=== PATIENT | female | born 1955 | race African-American/Black ===

== ENCOUNTER 2023-11-01 15:40 | Inpatient (IN) | payer OTHER, MEDICARE ==
[~2023-11-01] VITALS: Ht 167.6 cm; Wt 72.3 kg
[~2023-11-01 15:40] MED LIST: AMLO10TA80 MT; ASPI-1497 MT; CIPR-263 MT; IBUP-2029 PO; LIP40 MT; TAMS-11 MT
[2023-11-01 16:35] LABS: BASOPHILS % 0.5 % (0.0-2.0); HEMATOCRIT. 34.7 % (36.0-48.0); HEMOGLOBIN. 11.3 g/dL (12.0-16.0); MEAN CORPUSCULAR HEMOGLOBIN 26.9 pg (28.0-32.0); MEAN CORPUSCULAR HGB CONC 32.7 g/dL (31.0-37.0); MEAN CORPUSCULAR VOLUME 82.3 fL (81.0-99.0); MONOCYTES % 8.5 % (2.0-8.0); PLATELET 188 x1000/uL (130-400); RED BLOOD CELL COUNT 4.22 mill/uL (4.2-5.4); WHITE BLOOD COUNT 12.9 x1000/uL (4.5-11.0)
[2023-11-01 16:40] LABS: CHLORIDE 105 mEq/L (98-107); POTASSIUM 3.1 mEq/L (3.5-5.1); SODIUM 135 mEq/L (136-145)
[2023-11-01 16:41] LABS: CALCIUM 10.1 mg/dL (8.7-10.4); CARBON DIOXIDE 16 mEq/L (21-32)
[2023-11-01 16:46] LABS: CREATININE 1.2 mg/dL (0.6-1.0); GLUCOSE 144 mg/dL (70-105); UREA NITROGEN BLOOD 24 mg/dL (9-23)
[2023-11-01 16:48] LABS: ALANINE AMINOTRANSFERASE 18 IU/L (10-49); ALBUMIN 4.4 g/dL (3.2-4.8); ASPARTATE AMINOTRANSFERASE 27 IU/L (<34); BILIRUBIN DIRECT 0.2 mg/dL (<=3.0); BILIRUBIN TOTAL 0.7 mg/dL (0.1-1.0); PROTEIN TOTAL 7.8 g/dL (6.0-8.3)
[2023-11-01] MEDS: HYDROCODONE/ACETAMINOPHEN 5/325MG TABLET PO ONE (17:45)
[2023-11-01] MEDS: ONDANSETRON 4MG ODT PO ONE (17:45)
[2023-11-01 18:11] LABS: CLARITY URINE CLEAR (CLEAR); COLOR URINE YELLOW (YELLOW); GLUCOSE URINE NEGATIVE (NEGATIVE); KETONES URINE 3+ (NEGATIVE); LEUKOCYTE ESTERASE URINE NEGATIVE (NEGATIVE); NITRITE URINE NEGATIVE (NEGATIVE); OCCULT BLOOD URINE 3+ (NEGATIVE); PH URINE 8.5 (4.5-8.0); PROTEIN URINE 1+ (NEGATIVE); SPECIFIC GRAVITY URINE 1.021 (1.005-1.030); UROBILINOGEN URINE 0.2 E.U./dL (0.2-1.0)
[2023-11-01] MEDS: MORPHINE SULFATE 4 MG/ML INJ (FOR IV/IM USE) IV ONE (18:27)
[2023-11-01] MEDS: ONDANSETRON HCL 4MG/2ML INJ IV ONE (18:30)
[2023-11-01 18:31] LABS: BACTERIA URINE FEW; RBC URINE TNTC /hpf (0-2); SQUAMOUS EPITHELIAL CELL URINE 1+ /lpf (RARE/1+); WBC URINE 0-2 /hpf (0-2)
[2023-11-01] MEDS: SODIUM CHLORIDE 0.9% 1,000 ML IV ONE (19:14)
[2023-11-01] MEDS: HYDROMORPHONE HCL/PF 2MG/ML CPJ IV ONE (20:43)
[2023-11-01] MEDS: HYDRALAZINE 20MG/ML VIAL IV ONE (23:45)
[2023-11-02 01:42] VITALS: BP 151/51; PULSE 77; RESP 20; TEMP 97.9
[2023-11-02] MEDS ORDERED: CEFTRIAXONE 1,000 MG in DEXTROSE 5% WATER 50 ML IV SCH (03:30)
[2023-11-02 04:00] VITALS: BP 151/81; PULSE 77; RESP 18; TEMP 97.9
[2023-11-02] MEDS: MORPHINE SULFATE 2 MG/ML CPJ (NOT FOR IM USE) IV PRN ×2 (04:38→17:09)
[2023-11-02] MEDS: HYDRALAZINE 20MG/ML VIAL IV SCH (06:52)
[2023-11-02 08:00] VITALS: BP 139/66; PULSE 88; RESP 18; TEMP 98.2
[2023-11-02] MEDS: SODIUM CHLORIDE 0.45% 1,000 ML IV SCH (08:09)
[2023-11-02] MEDS: CEFTRIAXONE 1GM/50ML 50ML IV SCH (08:10)
[2023-11-02] MEDS: KETOROLAC 30MG/ML VIAL IV SCH (08:20)
[2023-11-02 12:00] VITALS: BP 143/75; PULSE 87; RESP 18; TEMP 99
[2023-11-02] MEDS ORDERED: ONDANSETRON HCL 4MG/2ML INJ IV PRN (13:15)
[2023-11-02 16:00] VITALS: BP 118/73; PULSE 72; RESP 18; TEMP 97.8
[2023-11-02] MEDS: ENOXAPARIN 40MG/0.4ML SYR SUBCUT SCH (16:00)
[2023-11-02 18:37] LABS: BASOPHILS % 0.2 % (0.0-2.0); EOSINOPHILS % 0.1 % (0.0-5.0); HEMATOCRIT. 35.2 % (36.0-48.0); HEMOGLOBIN. 11.3 g/dL (12.0-16.0); LYMPHOCYTES % 16.7 % (20.0-50.0); MEAN CORPUSCULAR HEMOGLOBIN 26.5 pg (28.0-32.0); MEAN CORPUSCULAR VOLUME 82.9 fL (81.0-99.0); MEAN PLATELET VOLUME 11.9 fl (7.4-10.4); PLATELET 174 x1000/uL (130-400); RED BLOOD CELL COUNT 4.25 mill/uL (4.2-5.4); RED CELL DISTRIBUTION WIDTH 14.6 % (11.6-14.6); WHITE BLOOD COUNT 14.5 x1000/uL (4.5-11.0)
[2023-11-02 18:45] LABS: POTASSIUM 3.5 mEq/L (3.5-5.1)
[2023-11-02 18:47] LABS: CALCIUM 9.9 mg/dL (8.7-10.4)
[2023-11-02 18:51] LABS: CREATININE 1.3 mg/dL (0.6-1.0)
[2023-11-02 20:00] VITALS: BP 148/85; PULSE 77; RESP 18; TEMP 97.9
[2023-11-02] MEDS: ATORVASTATIN CALCIUM 40MG TABLET PO SCH (20:34)
[2023-11-03] VITALS: BP 138/75; PULSE 74; RESP 17; TEMP 97.9
[2023-11-03 04:00] VITALS: BP 149/74; PULSE 68; RESP 18; TEMP 97.7
[2023-11-03 06:48] LABS: BASOPHILS % 0.3 % (0.0-2.0); EOSINOPHILS % 0.4 % (0.0-5.0); HEMATOCRIT. 33.9 % (36.0-48.0); HEMOGLOBIN. 11.1 g/dL (12.0-16.0); LYMPHOCYTES % 21.4 % (20.0-50.0); MEAN CORPUSCULAR HEMOGLOBIN 26.9 pg (28.0-32.0); MEAN CORPUSCULAR HGB CONC 32.7 g/dL (31.0-37.0); MEAN CORPUSCULAR VOLUME 82.2 fL (81.0-99.0); MEAN PLATELET VOLUME 11.8 fl (7.4-10.4); NEUTROPHILS % 67.9 % (40.0-76.0); PLATELET 157 x1000/uL (130-400); RED BLOOD CELL COUNT 4.13 mill/uL (4.2-5.4); RED CELL DISTRIBUTION WIDTH 14.6 % (11.6-14.6); WHITE BLOOD COUNT 11.3 x1000/uL (4.5-11.0)
[2023-11-03 07:06] LABS: CARBON DIOXIDE 22 mEq/L (21-32); CHLORIDE 104 mEq/L (98-107); POTASSIUM 3.8 mEq/L (3.5-5.1); SODIUM 136 mEq/L (136-145)
[2023-11-03 07:07] LABS: CALCIUM 9.6 mg/dL (8.7-10.4)
[2023-11-03 07:12] LABS: CREATININE 0.9 mg/dL (0.6-1.0); GLUCOSE 91 mg/dL (70-105); UREA NITROGEN BLOOD 17 mg/dL (9-23)
[2023-11-03 07:53] VITALS: BP 137/70; PULSE 68; RESP 16; TEMP 97.4
[2023-11-03] MEDS: PANTOPRAZOLE SODIUM 40 MG/VIAL IV SCH (08:38)
[2023-11-03] MEDS: AMLODIPINE 10MG TABLET PO SCH (08:39)
[2023-11-03] MEDS: ASPIRIN 81MG TABLET PO SCH (08:39)
[2023-11-03 12:00] VITALS: BP 153/83; PULSE 71; RESP 16; TEMP 97.9
[2023-11-03 16:00] VITALS: BP 133/73; PULSE 86; RESP 18; TEMP 98.7
[2023-11-03 20:00] VITALS: BP 137/65; PULSE 85; RESP 19; TEMP 96.9
[2023-11-04] VITALS: BP 140/63; PULSE 72; RESP 17; TEMP 98.9
[2023-11-04 04:00] VITALS: BP 128/59; PULSE 70; RESP 18; TEMP 98.4
[2023-11-04 08:00] VITALS: BP 130/67; PULSE 67; RESP 17; TEMP 97.6
[2023-11-04 12:00] VITALS: BP 125/73; PULSE 69; RESP 17; TEMP 98
[2023-11-04 16:00] VITALS: BP 126/56; PULSE 102; RESP 15; RESP 16; TEMP 97.6
[2023-11-04 20:00] VITALS: BP 101/62; PULSE 103; RESP 19; TEMP 97.6
[2023-11-05] VITALS: BP 145/66; PULSE 91; RESP 18; TEMP 98.6
[2023-11-05 04:00] VITALS: BP 121/55; PULSE 70; RESP 18; TEMP 99.7
[2023-11-05 08:00] VITALS: BP 120/63; PULSE 74; RESP 16; TEMP 97.8
[2023-11-05] MEDS: FAMOTIDINE 20MG/2ML VIAL IV SCH (08:23)
[2023-11-05 12:00] VITALS: BP 128/66; PULSE 83; RESP 18; TEMP 97.3
[2023-11-05 16:00] VITALS: BP 143/71; PULSE 78; RESP 18; TEMP 98.2
[2023-11-05 20:00] VITALS: BP 134/71; PULSE 80; RESP 19; TEMP 98.4
[2023-11-05] MEDS: KETOROLAC 15MG/ML VIAL IV PRN (20:54)
[2023-11-06] VITALS: BP 145/81; PULSE 84; RESP 18; TEMP 97.9
[2023-11-06 04:00] VITALS: BP 145/74; PULSE 85; RESP 19; TEMP 97.5
[2023-11-06 08:00] VITALS: BP 124/74; PULSE 97; RESP 16; TEMP 97.9
[2023-11-06 11:24] LABS: CHLORIDE 107 mEq/L (98-107); POTASSIUM 3.5 mEq/L (3.5-5.1); SODIUM 140 mEq/L (136-145)
[2023-11-06 11:25] LABS: CARBON DIOXIDE 24 mEq/L (21-32)
[2023-11-06 11:26] LABS: CALCIUM 9.9 mg/dL (8.7-10.4); EOSINOPHILS % 3.5 % (0.0-5.0); HEMATOCRIT. 34.8 % (36.0-48.0); HEMOGLOBIN. 11.8 g/dL (12.0-16.0); LYMPHOCYTES % 32.4 % (20.0-50.0); MEAN CORPUSCULAR HEMOGLOBIN 27.6 pg (28.0-32.0); MEAN CORPUSCULAR HGB CONC 33.8 g/dL (31.0-37.0); MEAN CORPUSCULAR VOLUME 81.7 fL (81.0-99.0); MONOCYTES % 9.1 % (2.0-8.0); RED BLOOD CELL COUNT 4.26 mill/uL (4.2-5.4); RED CELL DISTRIBUTION WIDTH 14.3 % (11.6-14.6)
[2023-11-06 11:30] LABS: CREATININE 0.8 mg/dL (0.6-1.0)
[2023-11-06 11:31] LABS: GLUCOSE 107 mg/dL (70-105); UREA NITROGEN BLOOD 10 mg/dL (9-23)
[2023-11-06] MEDS ORDERED: ONDANSETRON HCL 4MG/2ML INJ ONE (11:35)
[2023-11-06] MEDS ORDERED: DEXAMETHASONE 4MG/ML 1ML VIAL ONE (11:35)
[2023-11-06] MEDS ORDERED: LIDOCAINE HCL/PF 1% 10 MG/ML 5ML VIAL ONE (11:35)
[2023-11-06] MEDS ORDERED: ROCURONIUM BROMIDE 10MG/ML VIAL 5ML IV ONE (11:35)
[2023-11-06] MEDS ORDERED: FENTANYL CITRATE/PF 50MCG/ML 2ML VIAL ONE (11:36)
[2023-11-06] MEDS ORDERED: PROPOFOL 200MG/20ML VIAL IV ONE (11:36)
[2023-11-06] MEDS ORDERED: MIDAZOLAM HCL 2 MG/2 ML VIAL ONE (11:36)
[2023-11-06 11:41] LABS: DIFFERENTIAL COMMENT 1
[2023-11-06 12:00] VITALS: BP 150/74; PULSE 96; RESP 18; TEMP 97.4
[2023-11-06] MEDS ORDERED: HYDROMORPHONE HCL/PF 2MG/ML CPJ IV PRN (12:30)
[2023-11-06] MEDS ORDERED: ONDANSETRON HCL 4MG/2ML INJ IV PRN (12:30)
[2023-11-06] MEDS ORDERED: FENTANYL CITRATE/PF 50MCG/ML 2ML VIAL IV PRN (12:30)
[2023-11-06] MEDS: ACETAMINOPHEN 1000MG/100ML 100 ML IV NR (13:15)
[2023-11-06] MEDS: KETOROLAC 15MG/ML VIAL IV SCH (14:44)
[2023-11-06 16:00] VITALS: BP 136/69; PULSE 83; RESP 16; TEMP 98
[2023-11-06 20:00] VITALS: BP 146/70; PULSE 98; RESP 17; TEMP 98.1
[2023-11-07] VITALS: BP 128/71; PULSE 93; RESP 17; TEMP 98.5
[2023-11-07 04:00] VITALS: BP 135/65; PULSE 84; RESP 19; TEMP 98.1
[2023-11-07 06:30] LABS: CHLORIDE 108 mEq/L (98-107); POTASSIUM 3.5 mEq/L (3.5-5.1); SODIUM 140 mEq/L (136-145)
[2023-11-07 06:31] LABS: CALCIUM 9.4 mg/dL (8.7-10.4); CARBON DIOXIDE 21 mEq/L (21-32)
[2023-11-07 06:32] LABS: BASOPHILS % 0.2 % (0.0-2.0); HEMATOCRIT. 31.1 % (36.0-48.0); HEMOGLOBIN. 10.5 g/dL (12.0-16.0); LYMPHOCYTES % 21.5 % (20.0-50.0); MEAN CORPUSCULAR HEMOGLOBIN 27.3 pg (28.0-32.0); MEAN CORPUSCULAR HGB CONC 33.9 g/dL (31.0-37.0); MEAN CORPUSCULAR VOLUME 80.7 fL (81.0-99.0); MEAN PLATELET VOLUME 11.4 fl (7.4-10.4); MONOCYTES % 8.4 % (2.0-8.0); NEUTROPHILS % 69.9 % (40.0-76.0); PLATELET 224 x1000/uL (130-400); RED BLOOD CELL COUNT 3.86 mill/uL (4.2-5.4); RED CELL DISTRIBUTION WIDTH 14.1 % (11.6-14.6); WHITE BLOOD COUNT 8.2 x1000/uL (4.5-11.0)
[2023-11-07 06:36] LABS: CREATININE 0.9 mg/dL (0.6-1.0); GLUCOSE 98 mg/dL (70-105)
[2023-11-07 06:37] LABS: UREA NITROGEN BLOOD 19 mg/dL (9-23)
[2023-11-07 08:00] VITALS: BP 137/77; PULSE 85; RESP 18; TEMP 97.6
[2023-11-07 12:00] VITALS: BP 122/72; PULSE 80; RESP 18; TEMP 98
[2023-11-07 14:09] VITALS: BP 122/72; PULSE 80; TEMP 98; O2SAT 99
== END 2023-11-07 15:35 | disposition home or self-care (01) | DRG 690 ==
LOC: ER 15:40 → 7EST 23:31
PROVIDERS: ADMIT Internal Medicine; ATTEND Internal Medicine
PROC: 0TJ98ZZ Inspection of Ureter, Via Natural or Artificial Opening Endoscopic (ICD-10-PCS; principal; 2023-11-06)
DX: N13.6 Pyonephrosis (principal); N17.9 Acute kidney failure, unspecified; I10 Essential (primary) hypertension; E87.6 Hypokalemia; D72.829 Elevated white blood cell count, unspecified; D64.9 Anemia, unspecified; Z88.1 Allergy status to other antibiotic agents; Z88.8 Allergy status to other drugs, medicaments and biological substances; Z79.899 Other long term (current) drug therapy
CPT/HCPCS: 36415; 76770; 80048; 80076; 81003; 84145; 85025; 99285; C9113; J0360; J0696; J1100; J1170; J1650; J1885; J2250; J2270; J2405; J2704; J3010; J3490; J7030; Q0162; J0131